=== PATIENT | male | born 1965 | race Caucasian/White ===

== ENCOUNTER 2017-03-16 10:35 | Emergency (ER) | payer SELFPAY ==
--- NOTE | 2017-03-16 11:49 | RAD ---
THREE VIEWS OF THE LEFT ANKLE: 03/16/2017 HISTORY: Prior ankle injury. Trauma. Pain. COMPARISON: None. FINDINGS: There is evidence of a prior talar fracture with severe associated sclerosis and multiple postoperati ve screws. The posterior most screw on the lateral examination is fractured. There is severe subtal ar degenerative change and tibiotalar degenerative change. There is no evidence for dislocation seen. There is a vertically oriented lucency through the mid body of the calcaneus, extending into the shira on of the origin of the plantar aponeurosis, suggesting an acute calcaneal fracture. IMPRESSION: 1. Findings suspicious for a nondisplaced acute calcaneal fracture. 2. Postoperative hardware associated with an old talar fracture. The posterior most postoperative s crew is fractured. No evidence for dislocation. POS: [facility]
--- NOTE | 2017-03-16 11:50 | RAD ---
THREE VIEWS OF THE LEFT FOOT: INDICATION: Left foot injury following being stepped on by a horse. COMPARISON: None. FINDINGS: There is a nondisplaced fracture involving the calcaneus with extension into the posterior articular facet. There is also the appearance of a fracture extending through the body of the talus into the t alar dome. There are threaded screws traversing the talar body fracture. There is fracture of at le ast one of the more posterior screws within the talar body. 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 Lisfranc alignment is preserved. IMPRESSION: 1. Nondisplaced intraarticular fracture involving the body of the calcaneus with extension into the posterior subtalar articulation. 2. 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 There is also a fracture of a partially threaded screw seen within the posterior aspect of th e talus. Comparison with prior radiographs may be helpful to document chronicity. POS: [facility]
== END 2017-03-16 12:30 | disposition home or self-care (01) ==
LOC: NAV ERS 10:35
DX: S92.002A Unspecified fracture of left calcaneus, initial encounter for closed fracture (principal); T84.018A Broken internal joint prosthesis, other site, initial encounter; F17.210 Nicotine dependence, cigarettes, uncomplicated; W55.19XA Other contact with horse, initial encounter
CPT/HCPCS: 29515